=== PATIENT | female | born 1985 | race American Indian/Alaskan Native ===

== ENCOUNTER 2016-12-22 18:08 | Emergency (ER) | payer SELFPAY ==
--- NOTE | 2016-12-22 21:53 | Emergency Department Report ---
HPI - General Chief Complaint: Skin/Abscess/Foreign Body Time Seen by Provider: 12/22/16 21:04 - HPI HPI: 31-year-old female presents today complaining of something being stuck in her throat. Patient states that she was eating spaghetti prior to arrival and feels like it stopped. It is uncomfortable to talk and swallow. Denies any painful swallowing, difficulty in breathing or difficulty swallowing. Denies history of similar symptoms. Denies any other medical complaints, fever, chills , nausea, vomiting, chest pain, shortness of breath, abdominal pain. ED Past Medical Hx - Past Medical History Hx Asthma: Yes - Surgical History Hx Appendectomy: Yes Additional Surgical History: - Social History Smoking Status: Never Smoker Substance Use Type: None - Medications Home Medications: Home Medications Medication Instructions Recorded Confirmed Last Taken Type Amoxicillin/K Clav Tab [Augmentin 1 tab PO Q12H #14 tablet 07/18/14 Unknown Rx 875MG] HYDROcodone/APAP 10-325 [[place] 1 each PO Q6HR PRN #16 tablet 07/18/14 Unknown Rx 10/325] Prednisone [Prednisone 10 mg 10 mg PO .TAPER #1 tab.ds.pk 07/18/14 Unknown Rx (6-Day Pack, 21 Tabs)] Cyclobenzaprine [Flexeril 10mg] 10 mg PO TID PRN #20 tablet 07/23/14 Unknown Rx Naproxen [Naprosyn TAB] 500 mg PO BID #30 tablet 07/23/14 Unknown Rx traMADol [Ultram 50 MG tab] 50 mg PO Q6HR PRN #10 tablet 07/23/14 Unknown Rx ED Review of Systems ROS: Stated complaint: FEELS FOOD STILL STUCK IN THROAT/DIFF TO SWALLOW Other details as noted in HPI Constitutional: denies: chills, fever, malaise Eyes: denies: eye pain ENT: denies: ear pain, throat pain, congestion Respiratory: denies: cough, shortness of breath, wheezing Cardiovascular: denies: chest pain, palpitations Endocrine: no symptoms reported Gastrointestinal: denies: abdominal pain, nausea, vomiting Skin: denies: rash Neurological: denies: headache, weakness Physical Exam - Physical Exam Vital Signs: Vital Signs 12/22/16 20:00 Temperature 98 F Pulse Rate 99 H Respiratory 16 Rate Blood Pressure 140/93 O2 Sat by Pulse 100 Oximetry Physical Exam: GENERAL: The patient is well-developed and well-nourished. Patient is in NAD. HEAD: Normocephalic. Atraumatic. EYES: PERRL. NOSE: Normal nasal mucosa with no nasal discharge. THROAT: No erythema, swelling or exudates. No foreign bodies. NECK: Supple, nontender, without lymphadenopathy. CHEST/LUNGS: Clear to auscultation throughout. HEART/CARDIOVASCULAR: Regular rate and rhythm. No murmurs, rubs or gallops. ABDOMEN: Abdomen is soft, nontender. Bowel sounds normoactive. No guarding or rebound tenderness. EXTREMITIES: Peripheral pulses intact. Capillary refill less than 2 seconds. NEURO: Alert and oriented x 3. Normal gait. ED Course Vital Signs 12/22/16 20:00 Temperature 98 F Pulse Rate 99 H Respiratory 16 Rate Blood Pressure 140/93 O2 Sat by Pulse 100 Oximetry ED Medical Decision Making - Lab Data Vital Signs 12/22/16 12/22/16 20:00 22:46 Temperature 98 F Pulse Rate 99 H 90 Respiratory 16 18 Rate Blood Pressure 140/93 Blood Pressure 124/89 [Left] O2 Sat by Pulse 100 98 Oximetry - Radiology Data Radiology results: report reviewed PROCEDURE: XR NECK SOFT TISSUE TECHNIQUE: Soft tissue neck radiographs, 2 views, including AP and lateral. CPT 40555 HISTORY: foreign body in throat COMPARISON: No prior studies are available for comparison. FINDINGS: Bone mineralization: Normal. Alignment: Normal. Soft tissues: Epiglottis and hypopharyngeal soft tissues normal. Foreign bodies: None. IMPRESSION: Normal Examination. - Medical Decision Making 31-year-old female presents today complaining of something being stuck in her throat posterior neck. Her neck soft tissue x-ray reveals no foreign bodies. Patient has been provided with a referral for ENT specialist. Patient is in no acute distress at this time. She will be discharged home and is encouraged to follow up with a primary care provider. She is encouraged to return to the emergency room for any worsening symptoms. Critical care attestation.: If time is entered above; I have spent that time in minutes in the direct care of this critically ill patient, excluding procedure time. ED Disposition Clinical Impression: Foreign body sensation in throat Disposition: DISCHARGED TO HOME OR SELFCARE Is pt being admited?: No Does the pt Need Aspirin: No Condition: Stable Instructions: Foreign Body in Pharynx (ED) Additional Instructions: Follow-up with primary care provider and ENT specialist. Return to the emergency department if symptoms worsen. Referrals: PRIMARY CAREMD [Primary Care Provider] - 3-5 Days [facility] [Provider Group] - 3-5 Days [facility] [Provider Group] - 3-5 Days Forms: Work/School Release Form(ED) Time of Disposition: 22:36
--- NOTE | 2016-12-22 22:27 | XRay Report ---
FINAL REPORT PROCEDURE: XR NECK SOFT TISSUE TECHNIQUE: Soft tissue neck radiographs, 2 views, including AP and lateral. CPT 58932 HISTORY: foreign body in throat COMPARISON: No prior studies are available for comparison. FINDINGS: Bone mineralization: Normal. Alignment: Normal. Soft tissues: Epiglottis and hypopharyngeal soft tissues normal. Foreign bodies: None. IMPRESSION: Normal Examination.
[2016-12-22 22:47] VITALS: BP 124/89
== END 2016-12-22 22:47 | disposition home or self-care (01) ==
LOC: ED 18:08
DX: R09.89 Other specified symptoms and signs involving the circulatory and respiratory systems (principal); J45.909 Unspecified asthma, uncomplicated; Z90.49 Acquired absence of other specified parts of digestive tract
CPT/HCPCS: 70360; 99283

== ENCOUNTER 2017-05-03 21:26 | Emergency (ER) | payer OTHER ==
[2017-05-04 00:06] LABS: Basophils % (Auto) 0.4 % (0.0-1.8); Eosinophils % (Auto) 1.6 % (0.0-4.3); Hematocrit 44.2 % (30.3-42.9); Hemoglobin 14.1 gm/dl (10.1-14.3); Mean Corpuscular HGB Conc 32 % (30-34); Mean Corpuscular Hemoglobin 27 pg (28-32); Mean Corpuscular Volume 86 fl (79-97); Platelet Count 225 K/mm3 (140-440); Red Blood Count 5.16 M/mm3 (3.65-5.03); White Blood Count 11.3 K/mm3 (4.5-11.0)
[2017-05-04 00:19] LABS: Alanine Aminotransferase 14 units/L (7-56); Albumin 3.4 g/dL (3.9-5); Albumin/Globulin Ratio 0.9 %; Alkaline Phosphatase 67 units/L (35-129); BUN/Creatinine Ratio 11.42; Blood Urea Nitrogen 8 mg/dL (7-17); Carbon Dioxide 21 mmol/L (22-30); Chloride 102.6 mmol/L (98-107); Glucose 92 mg/dL (65-100); Lipase 132 units/L (13-60); Potassium 3.7 mmol/L (3.6-5.0); Sodium 137 mmol/L (137-145); Total Protein 7.2 g/dL (6.3-8.2)
[2017-05-04 00:27] LABS: Anion Gap 17 mmol/L
--- NOTE | 2017-05-04 00:47 | Emergency Department Report ---
ED HPI - General Chief complaint: OB/Uterine Contractions Stated complaint: ABDOMINAL PAIN, HCG RECHECK Time Seen by Provider: 05/04/17 00:32 Source: patient, RN notes reviewed Limitations: No Limitations - History of Present Illness Initial comments: This is a 31-year-old female, the patient is previously unknown to me, she is 4, para 2. Last menstrual period is March 09. Surgical history includes appendectomy, . Patient presents to the ER today with abdominal cramping, and . Cramping is present for one week, has no exacerbating or relieving factors, and it does not radiate anywhere. Positive nausea, no vomiting. Patient had an outpatient ultrasound performed at a local aid clinic, a sac was noted , but she is sent to the ER to exclude ectopic . -: Gradual Location: pelvis Severity: mild Quality: cramping Consistency: intermittent Improves with: none Worsens with: none Associated symptoms: abdominal pain. denies: nausea/vomiting, vaginal bleeding , vaginal discharge, dysuria, headache, vision changes, malaise, dysparuenia, rash Vaginal bleeding: none :: Yes OB History - Current : no complications - Related Data Previous Rx's Medication Instructions Recorded Last Taken Type Amoxicillin/K Clav Tab [Augmentin 1 tab PO Q12H #14 tablet 07/18/14 Unknown Rx 875MG] HYDROcodone/APAP 10-325 [[place] 1 each PO Q6HR PRN #16 tablet 07/18/14 Unknown Rx 10/325] Prednisone [Prednisone 10 mg 10 mg PO .TAPER #1 tab.ds.pk 07/18/14 Unknown Rx (6-Day Pack, 21 Tabs)] Cyclobenzaprine [Flexeril 10mg] 10 mg PO TID PRN #20 tablet 07/23/14 Unknown Rx Naproxen [Naprosyn TAB] 500 mg PO BID #30 tablet 07/23/14 Unknown Rx traMADol [Ultram 50 MG tab] 50 mg PO Q6HR PRN #10 tablet 07/23/14 Unknown Rx Doxylamine/Pyridoxine HCl 1 each PO QHS PRN #30 tablet. 05/04/17 Unknown Rx [Mathieu Painting 10-10 mg Tablet] Vit W-Ca,Fe,FA(<1 mg) 1 each PO QDAY #30 tablet 05/04/17 Unknown Rx [ Vitamins] Allergies Allergy/AdvReac Type Severity Reaction Status Date / Time No Known Allergies Allergy Verified 07/18/14 08:42 ED Review of Systems ROS: Stated complaint: ABDOMINAL PAIN, HCG RECHECK Other details as noted in HPI ED Past Medical Hx - Past Medical History Hx Asthma: Yes - Surgical History Hx Appendectomy: Yes Additional Surgical History: - Social History Smoking Status: Never Smoker Substance Use Type: None - Medications Home Medications: Home Medications Medication Instructions Recorded Confirmed Last Taken Type Amoxicillin/K Clav Tab [Augmentin 1 tab PO Q12H #14 tablet 07/18/14 Unknown Rx 875MG] HYDROcodone/APAP 10-325 [[place] 1 each PO Q6HR PRN #16 tablet 07/18/14 Unknown Rx 10/325] Prednisone [Prednisone 10 mg 10 mg PO .TAPER #1 tab.ds.pk 07/18/14 Unknown Rx (6-Day Pack, 21 Tabs)] Cyclobenzaprine [Flexeril 10mg] 10 mg PO TID PRN #20 tablet 07/23/14 Unknown Rx Naproxen [Naprosyn TAB] 500 mg PO BID #30 tablet 07/23/14 Unknown Rx traMADol [Ultram 50 MG tab] 50 mg PO Q6HR PRN #10 tablet 07/23/14 Unknown Rx Doxylamine/Pyridoxine HCl 1 each PO QHS PRN #30 tablet. 05/04/17 Unknown Rx [Mathieu Painting 10-10 mg Tablet] Vit W-Ca,Fe,FA(<1 mg) 1 each PO QDAY #30 tablet 05/04/17 Unknown Rx [ Vitamins] ED Physical Exam - General General appearance: alert, in no apparent distress - Head Head exam: Present: atraumatic, normocephalic - Eye Eye exam: Present: normal appearance, EOMI. Absent: nystagmus - ENT ENT exam: Present: normal exam, normal orophraynx, mucous membranes moist, normal external ear exam - Neck Neck exam: Present: normal inspection, full ROM. Absent: tenderness, meningismus - Respiratory Respiratory exam: Present: normal lung sounds bilaterally. Absent: respiratory distress, wheezes, rales, rhonchi, stridor, chest wall tenderness, accessory muscle use, decreased breath sounds, prolonged expiratory - Cardiovascular Cardiovascular Exam: Present: regular rate, normal rhythm, normal heart sounds. Absent: bradycardia, tachycardia, irregular rhythm, systolic murmur, diastolic murmur, rubs, gallop - GI/Abdominal GI/Abdominal exam: Present: soft, normal bowel sounds. Absent: distended, tenderness, guarding, rebound, rigid, pulsatile mass - Extremities Exam Extremities exam: Present: normal inspection, full ROM, normal capillary refill. Absent: pedal edema, joint swelling, calf tenderness - Back Exam Back exam: Present: normal inspection, full ROM. Absent: tenderness, CVA tenderness (R), CVA tenderness (L), muscle spasm, paraspinal tenderness, vertebral tenderness - Neurological Exam Neurological exam: Present: alert, oriented X3, other (Extraocular movements intact. Tongue midline. No facial droop. Facial sensation intact to light touch in the V1, V2, V3 distribution bilaterally. 5 and 5 strength in 4 extremities.. Sensation is intact to light touch in 4 extremities.). Absent: motor sensory deficit - Psychiatric Psychiatric exam: Present: normal affect, normal mood - Skin Skin exam: Present: warm, dry, intact, normal color. Absent: rash ED Course Vital Signs 05/03/17 05/04/17 23:24 02:02 Temperature 98.9 F Pulse Rate 68 82 Respiratory 18 20 Rate Blood Pressure 118/76 Blood Pressure 111/70 [Right] O2 Sat by Pulse 99 98 Oximetry - Reevaluation(s) Reevaluation #1: 05/04/17 01:53 Differential diagnosis: Miscarriage, early , constipation, urinary tract infection Assessment and plan: 31-year-old female sent to the ER to exclude ectopic . She is afebrile, with reassuring vital signs, has no abdominal tenderness, rebound or guarding, hemoglobin and hematocrit appropriate, transvaginal ultrasound results are pending at this time, quantitative hCG results are pending at this time. Urinalysis also pending. Reevaluation #2: 05/04/17 02:42 Pelvic ultrasound demonstrates intrauterine , gestational sac diameter corresponds to 9 weeks and 3 days, with no pole or yolk sac identified, findings concerning for blighted ovum. Quantitative hCG elevated at 55,000, urinalysis not consistent with urinary tract infection. No indication for type and screen at this time, the patient is not bleeding. Patient will be discharged with vitamins, as he denies medication, instructions to follow up with outpatient gynecology. 05/04/17 02:42 ED Medical Decision Making - Lab Data Result diagrams: 05/03/17 23:39 05/03/17 23:39 Vital Signs 05/03/17 23:24 Pulse Rate 68 Respiratory 18 Rate Blood Pressure 118/76 O2 Sat by Pulse 99 Oximetry Lab Results 05/03/17 05/03/17 05/03/17 Range/Units 23:39 23:39 23:39 WBC 11.3 H (4.5-11.0) K/mm3 RBC 5.16 H (3.65-5.03) M/mm3 Hgb 14.1 (10.1-14.3) gm/dl Hct 44.2 H (30.3-42.9) % MCV 86 (79-97) fl MCH 27 L (28-32) pg MCHC 32 (30-34) % RDW 14.0 (13.2-15.2) % Plt Count 225 (140-440) K/mm3 Lymph % (Auto) 28.1 (13.4-35.0) % Eddy % (Auto) 5.6 (0.0-7.3) % Eos % (Auto) 1.6 (0.0-4.3) % Baso % (Auto) 0.4 (0.0-1.8) % Lymph # 3.2 (1.2-5.4) K/mm3 Eddy # 0.6 (0.0-0.8) K/mm3 Eos # 0.2 (0.0-0.4) K/mm3 Baso # 0.0 (0.0-0.1) K/mm3 Seg Neutrophils % 64.3 (40.0-70.0) % Seg Neutrophils # 7.3 (1.8-7.7) K/mm3 Sodium 137 (137-145) mmol/L Potassium 3.7 (3.6-5.0) mmol/L Chloride 102.6 (98-107) mmol/L Carbon Dioxide 21 L (22-30) mmol/L Anion Gap 17 mmol/L BUN 8 (7-17) mg/dL Creatinine 0.7 (0.7-1.2) mg/dL Estimated GFR > 60 ml/min BUN/Creatinine Ratio 11.42 % Glucose 92 (65-100) mg/dL Calcium 9.0 (8.4-10.2) mg/dL Total Bilirubin 0.30 (0.1-1.2) mg/dL AST 15 (5-40) units/L ALT 14 (7-56) units/L Alkaline Phosphatase 67 (35-129) units/L Total Protein 7.2 (6.3-8.2) g/dL Albumin 3.4 L (3.9-5) g/dL Albumin/Globulin Ratio 0.9 % Lipase 132 H (13-60) units/L HCG, Qual Positive (Negative) - Radiology Data Radiology results: pending Critical care attestation.: If time is entered above; I have spent that time in minutes in the direct care of this critically ill patient, excluding procedure time. ED Disposition Clinical Impression: Disposition: DC-01 TO HOME OR SELFCARE Is pt being admited?: No Does the pt Need Aspirin: No Condition: Stable Instructions: (ED), Spontaneous Miscarriage (ED) Additional Instructions: Take the medications as directed. Rest and avoid heavy lifting. Do not engage in sexual activity until cleared by an RN GYNECOLOGY doctor. Follow up with an RN GYNECOLOGY doctor as soon as possible to initiate/start outpatient care. Ultrasound findings demonstrated a gestational sac with no pole, or yolk sac, no heart beat identified, findings are concerning for blighted ovum and/or demise. Vaginal bleeding may start, along with cramping and discomfort. Follow up with a flat hammerer within the next week. Return to the ER right away with new pain, worsened pain, migration of pain, fevers, chills, lethargy, irritability, projectile vomiting, change in mental status, inability to tolerate liquid feeds. Referrals: PRIMARY CARE, [Primary Care Provider] - 3-5 Days [facility] [Provider Group] - 3-5 Days [facility] [Provider Group] - 3-5 Days [facility] [Provider Group] - 3-5 Days
[2017-05-04 02:02] VITALS: BP 111/70
[2017-05-04 02:18] LABS: Bacteria,Urine 1+ /HPF (Negative); Bilirubin,Urine NEG (Negative); Blood,Urine NEG (Negative); Ketones,Urine NEG (Negative); Leukocyte Esterase,Urine NEG (Negative); Mucus,Urine 3+ /HPF; Nitrite,Urine NEG (Negative); Protein,Urine <15 mg/dL mg/dL (Negative); Urobilinogen,Urine < 2.0 mg/dL (<2.0)
--- NOTE | 2017-05-04 02:34 | Ultrasound Report ---
FINAL REPORT EXAM: US OB \T\lt; = 14 WEEKS FETUS HISTORY: abd crampign COMPARISON: None available. TECHNIQUE: Several real-time grayscale and color Doppler images were obtained. Transabdominal and transvaginal exam. FINDINGS: The uterus measures 11.2 x 6.9 x 9.1 centimeters. There is an apparent intrauterine gestational sac. Gestational sac diameter corresponds to 9 weeks 3 days gestation. No pole or yolk sac identified. Findings are concerning for blighted ovum. No adnexal masses are demonstrated to suggest ectopic with pseudo gestational sac. The right ovary measures 3.6 x 2.3 x 2.9 centimeters. Left ovary measures 2.6 x 1.9 x 3.0 centimeters. IMPRESSION: There is an apparent intrauterine gestational sac. Gestational sac diameter corresponds to 9 weeks 3 days gestation. No pole or yolk sac identified. Findings are concerning for blighted ovum. No adnexal masses are demonstrated to suggest ectopic with pseudo gestational sac. Correlation with serial beta HCGs and followup exam is suggested.
--- NOTE | 2017-05-04 02:34 | Ultrasound Report ---
FINAL REPORT EXAM: US OB TRANSVAGINAL HISTORY: abd crampign COMPARISON: None available. TECHNIQUE: Several real-time grayscale and color Doppler images were obtained. Transabdominal and transvaginal exam. FINDINGS: The uterus measures 11.2 x 6.9 x 9.1 centimeters. There is an apparent intrauterine gestational sac. Gestational sac diameter corresponds to 9 weeks 3 days gestation. No pole or yolk sac identified. Findings are concerning for blighted ovum. No adnexal masses are demonstrated to suggest ectopic with pseudo gestational sac. The right ovary measures 3.6 x 2.3 x 2.9 centimeters. Left ovary measures 2.6 x 1.9 x 3.0 centimeters. IMPRESSION: There is an apparent intrauterine gestational sac. Gestational sac diameter corresponds to 9 weeks 3 days gestation. No pole or yolk sac identified. Findings are concerning for blighted ovum. No adnexal masses are demonstrated to suggest ectopic with pseudo gestational sac. Correlation with serial beta HCGs and followup exam is suggested.
== END 2017-05-04 03:05 | disposition home or self-care (01) ==
LOC: ED 21:26
DX: O26.891 Other specified pregnancy related conditions, first trimester (principal); R10.9 Unspecified abdominal pain; R11.0 Nausea; Z3A.09 9 weeks gestation of pregnancy; O99.511 Diseases of the respiratory system complicating pregnancy, first trimester; J45.909 Unspecified asthma, uncomplicated; Z98.890 Other specified postprocedural states
CPT/HCPCS: 36415; 76801; 76817; 80053; 81001; 83690; 84702; 84703; 85025